=== PATIENT | female | born 1955 ===

== ENCOUNTER 2023-12-28 11:41 | Outpatient (CLI) | payer MEDICARE, SELFPAY ==
--- NOTE | 2023-12-28 11:52 | CTR_ITS ---
PROCEDURE INFORMATION: Exam: CT Chest With Contrast; Diagnostic Exam date and time: 12/28/2023 12:19 PM Age: 68 years old Clinical indication: Mass, lump, or swelling; Generalized; Other: Abdominal wall mass; Patient HX: Right side lump x 10 years, has grown 3 since 2019, diarrhea today TECHNIQUE: Imaging protocol: Diagnostic computed tomography of the chest with contrast. Radiation optimization: All CT scans at this facility use at least one of these dose optimization techniques: automated exposure control; mA and/or kV adjustment per patient size (includes targeted exams where dose is matched to clinical indication); or iterative reconstruction. Contrast material: OMNI 350; Contrast volume: 100 ml; Contrast route: INTRAVENOUS (IV); COMPARISON: No relevant prior studies available. RADIATION DOSE METRICS: Total DLP (mGy-cm): 950.05 FINDINGS: Thyroid: Grossly unremarkable. Lungs: No focal consolidation. Pleural spaces: No pleural effusion. No pneumothorax. Heart: No cardiomegaly. No pericardial effusion. Mediastinal space: Trachea and central airways are grossly patent. No evidence of mediastinal mass or hematoma. Lymph nodes: No evidence of mediastinal or hilar adenopathy. Vasculature: No aneurysmal dilatation of the thoracic aorta. No evidence of dissection. Though this study is not tailored to evaluate for pulmonary thromboembolism, there is no evidence of PE within limitations of respiratory motion. Bones/joints: No evidence of acute fracture or aggressive osseous lesion. Soft tissues: Partially visualized large intramuscular lipomatous lesion involving the right flank abdominal musculature. No fluid collection or hematoma in the superficial soft tissues. PROCEDURE INFORMATION: Exam: CT Abdomen And Pelvis With Contrast Exam date and time: 12/28/2023 12:19 PM Age: 68 years old Clinical indication: Mass, lump, or swelling; Generalized; Other: Abdominal wall mass; Patient HX: Right side lump x 10 years, has grown 3 since 2018, diarrhea today TECHNIQUE: Imaging protocol: Computed tomography of the abdomen and pelvis with contrast. Radiation optimization: All CT scans at this facility use at least one of these dose optimization techniques: automated exposure control; mA and/or kV adjustment per patient size (includes targeted exams where dose is matched to clinical indication); or iterative reconstruction. Contrast material: OMNI 350; Contrast volume: 100 ml; Contrast route: INTRAVENOUS (IV); COMPARISON: No relevant prior studies available. RADIATION DOSE METRICS: Total DLP (mGy-cm): 950.05 FINDINGS: Liver: Hepatic steatosis. No evidence of focal hepatic lesion. Gallbladder and biliary ducts: There is cholelithiasis. No inflammatory changes to suggest acute cholecystitis. No intrahepatic or extrahepatic biliary dilatation. Pancreas: Unremarkable. Spleen: Unremarkable. Adrenal glands: Unremarkable. Kidneys and ureters: No renal parenchymal abnormality. No hydronephrosis or ureteral stone. Stomach and bowel: Few scattered colonic diverticula without evidence of acute diverticulitis. No evidence of bowel obstruction or perienteric inflammatory changes. Appendix: Normal appendix. Intraperitoneal space: No evidence of free air or fluid collection. Vasculature: Mild aortobiiliac atherosclerosis without aneurysmal dilatation or dissection. The celiac trunk, SMA and ANNY are grossly patent. No evidence of IVC thrombus. The portal vein, SMV and splenic veins are grossly patent. Lymph nodes: No adenopathy. Urinary bladder: Grossly unremarkable. Reproductive: Grossly unremarkable. Bones/joints: No evidence of acute fracture or aggressive osseous lesion. Soft tissues: Large intramuscular lipomatous lesion involving the external oblique muscle on the right with a few thin internal septations. The mass measures up to 20 cm craniocaudal by 12 cm AP by 6.[address]/CT chest abdpel w/*[id number] IMPRESSION: 1. No evidence of acute intrathoracic abnormality. IMPRESSION: 1. Large right flank intramuscular lipomatous lesion. Correlation with nonemergent MRI of the abdomen with/without contrast and surgical evaluation is recommended. 2. No evidence of acute intra-abdominal/intrapelvic abnormality.
[2023-12-28] MEDS: iohexol 350 mg/mL 500 mL Btl (per mL) IV (12:26)
== END 2023-12-28 11:42 | disposition home or self-care (01) ==
PROVIDERS: PCP Family Medicine; Visit Provider Family Medicine
DX: R22.2 Localized swelling, mass and lump, trunk (principal); D17.9 Benign lipomatous neoplasm, unspecified; K76.0 Fatty (change of) liver, not elsewhere classified; K80.20 Calculus of gallbladder without cholecystitis without obstruction
CPT/HCPCS: 71260; 74177; Q9967

== ENCOUNTER → 2024-01-20 13:30 | Outpatient (BNVA) | payer MEDICARE, SELFPAY | PROVIDERS: PCP Family Medicine; Referring Provider Family Medicine; Visit Provider Surgery | DX: N64.52 Nipple discharge; R22.2 Localized swelling, mass and lump, trunk | CPT/HCPCS: 99204 ==

== ENCOUNTER 2024-02-10 05:55 | Day surgery (SDC) | payer MEDICARE, SELFPAY ==
[2024-02-10] VITALS (14 sets, daily range): BP systolic 112–186; BP diastolic 51–99; PULSE 72–94; RESP 14–17; TEMP 36.1–37.2; O2SAT 92–99; BMI 26.6
[2024-02-10] MEDS: sodium chloride 0.9% 1,000 ML 30 ML IV (06:46)
--- NOTE | 2024-02-10 06:50 | ANES.PREANE2 ---
Pre-Anesthetic Assessment Height/Weight: Height 1.75 m Weight 81.647 kg Temp Pulse Resp BP Pulse Ox O2 Del Method 98.9 F 94 17 186/99 97 Room Air 02/10/24 06:18 02/10/24 06:18 02/10/24 06:18 02/10/24 06:18 02/10/24 06:18 02/10/24 06:18 Operation Date: 02/10/24 07:00 Proposed Procedures p excision subfascial mass right flank(Right) - Adán Delacruz DO Familial anesthetic complications: None Was Beta Edmond taken within 24 hours: N/A Was Clonidine taken within 24 hours: N/A Last intake: Intake Last Liquid Date 02/09/24 Last Liquid Time 23:00 Last Solid Date 02/09/24 Last Solid Time 19:00 Social No alcohol and No tobacco Exam alert, oriented x 3, clear to auscultation bilaterally and regular rate & rhythm Airway Mallampati: Class I Dentition: false Anesthetic Plan ASA status: 1 Anesthesia: General Risk of > 500 ml blood loss (7ml/kg in children): No Medications/Allergies Home Medications Medication Instructions Recorded Confirmed Last Taken Type biotin 10,000 mcg capsule 10,000 mcg PO . 1 QD 01/20/24 02/09/24 02/09/24 History mecobalamin (vitamin B12) 2,500 2,500 mcg PO DAILY 01/20/24 02/09/24 02/09/24 History mcg chewable tablet vitamin K2 100 mcg capsule 100 mcg PO DAILY 01/20/24 02/09/24 02/09/24 History loratadine 10 mg tablet (Claritin) 10 mg PO DAILY 02/10/24 02/10/24 02/09/24 19:00 History Allergies Allergy/AdvReac Type Severity Reaction Status Date / Time No Known Allergies Allergy Verified 02/10/24 06:12 Current Medications Generic Name Dose Route Start Last Admin Trade Name Freq PRN Reason Stop Dose Admin Sodium Chloride 1,000 mls @ 30 mls/hr 02/10/24 06:00 02/10/24 06:46 Sodium Chloride 0.9% IV 02/11/24 05:59 30 mls/hr .Q24H JASMINE Administration PFSH Anesthesia Family History Mother Cancer breast cancer Social History Smoking and tobacco/nicotine status: never used tobacco/nicotine Alcohol intake: never Data Anesthesia Cardiac Studies: No Data to Display
[2024-02-10] MEDS: midazolam 1 mg/mL INJ 2 mL 2 MG IVP (06:57)
--- NOTE | 2024-02-10 07:02 | W.PM.OPSUD ---
Surgery/Procedure H&P Update DATE OF PROCEDURE: February 10, 2024 DATE H&P PERFORMED: 01/20/24 H&P UPDATE INFORMATION: I have reviewed H&P completed within last 30 days, I have examined patient prior to procedure and No changes to prior documentation PLANNED PROCEDURE: Operation Date: 02/10/24 07:00 Proposed Procedures p excision subfascial mass right flank(Right) - Adán Delacruz DO
[2024-02-10] MEDS: ceFAZolin 2,000 mg SDV 2000 MG IVP (07:03)
[2024-02-10] MEDS: lidocaine-epi 2% PF 1:200,000 20 mL SDV XX (07:32)
--- NOTE | 2024-02-10 08:01 | PM.OP ---
Operative Report Date of procedure: February 10, 2024 Pre-op diagnosis: Subfascial mass right flank Post-op diagnosis: same Procedure done: Excision of subfascial mass right flank Implants: De Specimens removed/disposition: Lipomatous subfascial mass right flank measuring 27 x 16 x 8 cm Surgeon: Adán Delacruz DO Anesthesia: General and Local Estimated blood loss (mL): 5 Complications: None apparent Brief History: This is a very pleasant 68-year-old female who presented my office with a years long history of painful enlarging subfascial mass on her right flank. CT showed a large fatty mass underneath the abdominal musculature and just anterior to the peritoneum on the right flank. She desired excision. The risks and benefits were explained and documented. Procedure: Patient was wheeled operative room placed on the OR table in the supine position. General endotracheal intubation was achieved by department anesthesia. She was then placed in the left lateral decubitus position and secured in place. The right flank was inspected prepped and draped in usual sterile fashion. Timeout was performed. All present were in agreement. After localizing with 2% lidocaine with epinephrine, a 9 cm oblique incision was made over the center of the mass. Electrocautery was used to dissect down through the dermis and subcutaneous fat. The fascia and abdominal wall musculature were incised with electrocautery. We then encountered a very large lipomatous mass. The edges of this mass were freed up using finger fracking and alveolar tissue was ligated with electrocautery. Extreme care was taken not to enter the peritoneum as the mass was intimately associated with the peritoneum. We did manage stay out of the peritoneum and remove the mass en bloc. Mass measured 27 cm x 16 cm x 8 cm. Specimen was passed off to go in formalin. Hemostasis was achieved with electrocautery. Surgical field was further inspected and no further mass was identified. De was placed into the operative field. The fascia overlying the musculature was reapproximated using 0 Vicryl suture in interrupted fashion. Dermis was approximated using 3-0 Vicryl in interrupted fashion. Skin was closed using 3 oh STRATAFIX in a subcutaneous running fashion. Dermabond was applied. Patient tolerated procedure well.
[2024-02-10] MEDS: HYDROmorphone 1 mg/mL INJ 1 mL IVP (08:57)
--- NOTE | 2024-02-10 10:15 | ANE.PACU2 ---
Inpatient post-anesthesia follow up: Airway intact: Yes Vital signs: Temperature 98.0 F Pulse Rate 81 Respiratory Rate 17 Blood Pressure 112/51 Pulse Oximetry 94 Oxygen Delivery Me thod Room Air Oxygen Flow Rate 6 Fraction of Inspir ed Oxygen Hydration adequate: Yes Nausea and vomiting: No Pain level: 1 Mental status: Baseline
== END 2024-02-10 10:18 | disposition home or self-care (01) ==
PROVIDERS: PCP Family Medicine; Visit Provider Surgery
PROC: (CPT 21933; principal; 2024-02-10 07:00)
DX: C76.8 Malignant neoplasm of other specified ill-defined sites (principal)
CPT/HCPCS: 21933; 88307; J0690; J1100; J1170; J1200; J2250; J2371; J2405; J2704; J3010; J7030

== ENCOUNTER → 2024-02-21 10:55 | Outpatient (BNVA) | payer MEDICARE, SELFPAY | PROVIDERS: PCP Family Medicine; Visit Provider Surgery | DX: C49.9 Malignant neoplasm of connective and soft tissue, unspecified (principal) | CPT/HCPCS: 99214 ==

== ENCOUNTER → 2024-03-06 09:45 | Outpatient (BNVA) | payer MEDICARE, SELFPAY | PROVIDERS: PCP Family Medicine; Visit Provider Surgery | DX: C49.9 Malignant neoplasm of connective and soft tissue, unspecified (principal) | CPT/HCPCS: 99212 ==